=== PATIENT | male | born 1950 | race Caucasian/White ===

== ENCOUNTER 2022-07-31 07:37 | Outpatient (CLI) | payer MEDICARE, OTHER, SELFPAY ==
--- NOTE | 2022-07-31 08:05 | RAD_ITS ---
PROCEDURE: Fluoroscopic guided left shoulder injection. DATE: 07/31/2022 INDICATION: 72-year-old male with chronic left shoulder pain. PHYSICIAN: Kerwin Puentes D.O. MEDICATIONS: 2 cc of betamethasone, 4 cc of 1% lidocaine. 5 cc of 2% lidocaine was administered subcutaneously for local anesthesia. ACCESS SITE: Left shoulder. NEEDLE: 22-gauge spinal needle. FLUOROSCOPY TIME (if supplied): 14 seconds. One image obtained. FINDINGS: The risks, benefits, and alternatives to the procedure were explained to the patient. The specific risks of bleeding, infection, and neurovascular injury were detailed and accepted. Witnessed informed consent was obtained. Injection site in the left shoulder was selected utilizing fluoroscopy. The area was then prepared with usual sterile technique utilizing iodine prep. 5 cc of 2% lidocaine was administered locally utilizing a 25-gauge injection needle. A 22-gauge spinal needle was then placed into the left shoulder joint cavity utilizing periodic fluoroscopic guidance. Placement of the needle into the joint space was confirmed by injecting 2 to 3 cc of 50:50 normal saline/Isovue contrast mixture. The 6 cc mixture of betamethasone and 1% lidocaine was then injected into the joint cavity. The patient tolerated the procedure well without any immediate complications. The patient was discharged home in stable condition. During the procedure, intraoperative fluoroscopic images could not be saved due to technical factors. As technical issues could not be immediately resolved, a full exposure radiograph of the left shoulder was obtained post procedure which demonstrated trace residual contrast within the joint cavity. RAD/Inj/Asp Leonardo Jt Should/Hip/Knee IMPRESSION: Successful fluoroscopic guided left shoulder steroid injection. Electronically Signed: Kerwin Puentes MD at 13:12 EDT ,
[2022-07-31] MEDS: Lidocaine 2% (5ml sdv) 5 ML VIAL.MPF INFILT (08:30)
[2022-07-31] MEDS: Lidocaine 1% (5 ml sdv) 5 ML Vial 4 ML OPERA.SITE (08:38)
[2022-07-31] MEDS: Betamethasone/Betamethasone 30 MG/5 ML Vial 12 MG INTRAARTIC (08:38)
== END 2022-07-31 23:59 | disposition home or self-care (01) ==
PROVIDERS: Referring Provider Specialist; Visit Provider Specialist
DX: M19.012 Primary osteoarthritis, left shoulder (principal)
CPT/HCPCS: 20610; 77002; Q9967; J0702